=== PATIENT | male | born 1965 | race African-American/Black ===

== ENCOUNTER 2021-02-25 04:26 | Day surgery (SDC) | payer OTHER ==
[2021-02-23 16:56] VITALS: BMI 36.9
[2021-02-25] MEDS ORDERED: MIDAZOLAM HCL 2 MG/2 ML SINGLE DOSE VIAL ONE ×3 (07:20→07:31)
[2021-02-25] MEDS ORDERED: ROCURONIUM BROMIDE 50 MG/5 ML SYRINGE ONE ×3 (07:20→12:32)
[2021-02-25] MEDS ORDERED: PROPOFOL 20 ML ONE (07:20)
[2021-02-25] MEDS ORDERED: LIDOCAINE HCL/PF 2% SDV 5ML VIAL ONE (07:23)
[2021-02-25] MEDS ORDERED: BUPIVACAINE HCL/PF 0.5% (5MG/ML) 10 ML VIAL ONE ×2 (07:32→09:16)
[2021-02-25] MEDS ORDERED: ROPIVACAINE HCL 0.5% 30ML VIAL ONE (07:35)
[2021-02-25] MEDS ORDERED: oxyCODONE HCL 5 MG TABLET PO PRN (08:13)
[2021-02-25] MEDS ORDERED: PROMETHAZINE HCL 25 MG/1 ML VIAL IVPUSH PRN (08:13)
[2021-02-25] MEDS ORDERED: ONDANSETRON 4 MG/2 ML VIAL IVPUSH PRN (08:13)
[2021-02-25] MEDS ORDERED: LACTATED RINGERS SOLUTION 1,000 ML IV SCH (08:15)
[2021-02-25] MEDS ORDERED: ceFAZolin 2 GRAM PREMIX BAG IVPB ONE (10:43)
[2021-02-25] MEDS ORDERED: ceFAZolin SODIUM 1 GM VIAL ONE (10:54)
[2021-02-25] MEDS ORDERED: GLYCOPYRROLATE 0.2 MG/1 ML VIAL ONE (12:22)
[2021-02-25] MEDS ORDERED: NEOSTIGMINE METHYLSULFATE 0.5 MG/ML - 10 ML MDV ONE (12:22)
[2021-02-25] MEDS ORDERED: KETOROLAC TROMETHAMINE 30 MG/1 ML VIAL ONE (12:46)
[2021-02-25 18:58] VITALS: BP 145/89; PULSE 72; TEMP 97.9
== END 2021-02-25 18:25 | disposition home or self-care (01) ==
LOC: JASU-SURG 04:26
PROVIDERS: ATTEND Surgery
PROC: 0YQ60ZZ Repair Left Inguinal Region, Open Approach (ICD-10-PCS; 2021-02-25)
PROC: 0WUF0JZ Supplement Abdominal Wall with Synthetic Substitute, Open Approach (ICD-10-PCS; principal; 2021-02-25 08:00)
DX: K40.90 Unilateral inguinal hernia, without obstruction or gangrene, not specified as recurrent (principal); K42.9 Umbilical hernia without obstruction or gangrene; Z53.31 Laparoscopic surgical procedure converted to open procedure
CPT/HCPCS: 74018-TC-FY; 86850; 86900; 86901; 88302-TC; 88304-TC; 94760